=== PATIENT | female | born 1940 | race Caucasian/White ===

== ENCOUNTER 2023-07-31 12:52 | Emergency (ER) | payer MEDICARE ==
[~2023-07-31] VITALS: Ht 152.4 cm; Wt 59.9 kg
[2023-07-31] MEDS ORDERED: Primidone50 MG PO (13:21)
[2023-07-31] MEDS ORDERED: AMLO5 PO (13:21)
[2023-07-31 13:45] VITALS: BP 151/79
[2023-07-31 14:17] LABS: Albumin, Blood 3.3 g/dL (3.4-5.0); Bilirubin, Total 0.4 mg/dL (0.1-1.0); Bun/Creatinine Ratio 28.2 (12.0-20.0); Calcium, Blood 8.6 mg/dL (8.5-10.1); Creatinine, Blood 0.78 mg/dL (0.40-1.00); Globulin, Blood 3.4 g/dL (2.2-4.0); Potassium, Blood 4.2 mmol/L (3.5-5.5); Total Protein, Blood 6.7 g/dL (6.4-8.2)
[2023-07-31 14:51] LABS: BASOPHILS ABSOLUTE AUTO 0.05 K/mm3 (0.00-0.23); BASOPHILS PERCENT AUTO 1 % (0-2); EOSINOPHILS ABSOLUTE AUTO 0.04 K/mm3 (0.00-0.68); EOSINOPHILS PERCENT AUTO 1 % (0-6); Hematocrit 39.5 % (33.0-51.0); Hemoglobin 13.3 g/dL (11.5-16.0); IMMATURE GRAN ABSOLUTE AUTO 0.02 K/mm3 (0.00-0.10); IMMATURE GRAN PERCENT AUTO 0 % (0-1); LYMPHOCYTES ABSOLUTE AUTO 1.26 K/mm3 (0.84-5.20); LYMPHOCYTES PERCENT AUTO 17 % (21-46); MONOCYTES ABSOLUTE AUTO 0.83 K/mm3 (0.16-1.47); MONOCYTES PERCENT AUTO 11 % (4-13); Mean Corpuscular HGB 29.8 pg (26.0-34.0); Mean Corpuscular HGB Conc 33.7 g/dL (31.5-36.5); Mean Corpuscular Volume 89 fL (80-100); Mean Platelet Volume 11.2 fL (9.1-12.4); NEUTROPHILS ABSOLUTE AUTO 5.24 K/mm3 (1.96-9.15); NEUTROPHILS PERCENT AUTO 70 % (41-73); Platelet Count 191 K/mm3 (150-400); RDW Coefficient Variation 14.6 % (11.7-14.2); RDW Standard Deviation 47.4 fL (35.1-46.3); Red Blood Cell Count 4.46 M/mm3 (3.80-5.20); White Blood Cell Count 7.44 K/mm3 (4.00-11.30)
== END 2023-07-31 15:32 | disposition home or self-care (01) ==
LOC: ER 12:52
PROVIDERS: Emergency Medicine
DX: G45.9 Transient cerebral ischemic attack, unspecified (principal); Z79.899 Other long term (current) drug therapy
CPT/HCPCS: 36415; 70450; 80053; 85025; 93005; 93010; 99285-25; A9270

== ENCOUNTER 2024-07-30 14:22 | Inpatient (IN) | payer OTHER, MEDICARE ==
[~2024-07-30] VITALS: Ht 149.9 cm; Wt 57.8 kg
[~2024-07-30 14:22] MED LIST: AMLO5 PO; Primidone50 MG PO
[2024-07-30] MEDS ORDERED: CARBIDOPA-LEVO1 EA15 PO (15:03)
[2024-07-30] MEDS ORDERED: METOPROLOL SUCC25 MG PO (15:03)
[2024-07-30] MEDS ORDERED: Ketorolac Tromethamine 15mg Vial IV ONE (17:35)
[2024-07-30] MEDS ORDERED: Ondansetron HCl 2 MG / ML 2ML Vial IV ONE (17:35)
[2024-07-30 19:07] LABS: BASOPHILS ABSOLUTE AUTO 0.04 K/mm3 (0.00-0.23); BASOPHILS PERCENT AUTO 0 % (0-2); EOSINOPHILS ABSOLUTE AUTO 0.08 K/mm3 (0.00-0.68); EOSINOPHILS PERCENT AUTO 1 % (0-6); Hematocrit 40.5 % (33.0-51.0); Hemoglobin 13.3 g/dL (11.5-16.0); IMMATURE GRAN ABSOLUTE AUTO 0.04 K/mm3 (0.00-0.10); IMMATURE GRAN PERCENT AUTO 0 % (0-1); LYMPHOCYTES ABSOLUTE AUTO 1.62 K/mm3 (0.84-5.20); LYMPHOCYTES PERCENT AUTO 18 % (21-46); MONOCYTES ABSOLUTE AUTO 0.82 K/mm3 (0.16-1.47); MONOCYTES PERCENT AUTO 9 % (4-13); Mean Corpuscular HGB 29.4 pg (26.0-34.0); Mean Corpuscular HGB Conc 32.8 g/dL (31.5-36.5); Mean Corpuscular Volume 90 fL (80-100); Mean Platelet Volume 10.7 fL (9.1-12.4); NEUTROPHILS ABSOLUTE AUTO 6.42 K/mm3 (1.96-9.15); NEUTROPHILS PERCENT AUTO 71 % (41-73); Platelet Count 195 K/mm3 (150-400); RDW Coefficient Variation 14.4 % (11.7-14.2); RDW Standard Deviation 47.5 fL (35.1-46.3); Red Blood Cell Count 4.52 M/mm3 (3.80-5.20); White Blood Cell Count 9.02 K/mm3 (4.00-11.30)
[2024-07-30] MEDS ORDERED: Acetaminophen 325 MG TABLET PO PRN (19:10)
[2024-07-30] MEDS ORDERED: FLU VACC TS2024-25(6MOS UP)/PF 45 MCG/0.5 ML SYRINGE IM ONE (19:15)
[2024-07-30] MEDS ORDERED: Ondansetron HCl 2 MG / ML 2ML Vial IV PRN (19:15)
[2024-07-30 19:20] LABS: International Normalized Ratio 1.06; Prothrombin Time Results 11.3 Sec (9.7-11.5)
[2024-07-30] MEDS ORDERED: Ketorolac Tromethamine 15mg Vial IV PRN (19:30)
[2024-07-30 19:35] LABS: Albumin/Globulin Ratio 0.9 (0.8-1.8); Bilirubin, Total 0.4 mg/dL (0.1-1.0); Bun/Creatinine Ratio 21.6 (12.0-20.0); Calcium, Blood 8.2 mg/dL (8.5-10.1); Creatinine, Blood 1.02 mg/dL (0.40-1.00); Globulin, Blood 3.4 g/dL (2.2-4.0); Potassium, Blood 4.4 mmol/L (3.5-5.5); Total Protein, Blood 6.4 g/dL (6.4-8.2)
[2024-07-30] MEDS ORDERED: Levodopa/Carbidopa 100 / 25 MG Tab PO SCH (21:00)
[2024-07-30] MEDS ORDERED: Primidone 50 MG Tab PO SCH (21:00)
[2024-07-30 22:22] VITALS: BP 162/101
[2024-07-30] MEDS ORDERED: Morphine Sulfate 4 MG/1 ML Injection IV PRN (23:20)
[2024-07-30] MEDS ORDERED: OxyCODONE HCL 5 MG TAB PO PRN (23:20)
[2024-07-31] VITALS (15 sets, daily range): BP systolic 125–159; BP diastolic 57–77
[2024-07-31 05:39] LABS: BASOPHILS ABSOLUTE AUTO 0.05 K/mm3 (0.00-0.23); BASOPHILS PERCENT AUTO 1 % (0-2); EOSINOPHILS ABSOLUTE AUTO 0.13 K/mm3 (0.00-0.68); EOSINOPHILS PERCENT AUTO 2 % (0-6); Hematocrit 39.2 % (33.0-51.0); Hemoglobin 13.1 g/dL (11.5-16.0); IMMATURE GRAN ABSOLUTE AUTO 0.02 K/mm3 (0.00-0.10); IMMATURE GRAN PERCENT AUTO 0 % (0-1); LYMPHOCYTES ABSOLUTE AUTO 1.48 K/mm3 (0.84-5.20); LYMPHOCYTES PERCENT AUTO 21 % (21-46); MONOCYTES ABSOLUTE AUTO 0.85 K/mm3 (0.16-1.47); MONOCYTES PERCENT AUTO 12 % (4-13); Mean Corpuscular HGB 29.6 pg (26.0-34.0); Mean Corpuscular HGB Conc 33.4 g/dL (31.5-36.5); Mean Corpuscular Volume 89 fL (80-100); Mean Platelet Volume 11.1 fL (9.1-12.4); NEUTROPHILS ABSOLUTE AUTO 4.47 K/mm3 (1.96-9.15); NEUTROPHILS PERCENT AUTO 64 % (41-73); Platelet Count 196 K/mm3 (150-400); RDW Coefficient Variation 14.5 % (11.7-14.2); RDW Standard Deviation 47.2 fL (35.1-46.3); Red Blood Cell Count 4.43 M/mm3 (3.80-5.20)
--- NOTE | 2024-07-31 06:10 | NUR ---
PT TRANSFERED TO SURGICAL FLOOR AT 0605 WITH ALL BELONGINGS. VSS. NO ACUTE DISTRESS. A/O X 4, ADEQUATE CIRCULATION TO RLE.
--- NOTE | 2024-07-31 06:30 | NUR ---
TRANSFER NOTE PT TRANSFERED TO SURGICAL FLOOR FROM [facility]. PT TRANSFERED IN BED, PURWICK CHANGED, PT HAD INC VOID IN PURWICK UPON ARRIVAL. CHANGED CONDE PAD UNDERNEATH PT AND REPOSITIONED R SIDE, BOTH LEGS ELEVATED. PT ABLE TO WIGGLE R TOES, CAP REFILL 2 SECS, PEDAL PULSES PALPABLE. SCDS IN PLACE. VSS. PT IS A/O X4. 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 PT DENIES PAIN WHILE AT REST.
[2024-07-31 07:02] LABS: Albumin, Blood 3.1 g/dL (3.4-5.0); Albumin/Globulin Ratio 0.9 (0.8-1.8); Bilirubin, Total 0.6 mg/dL (0.1-1.0); Bun/Creatinine Ratio 21.8 (12.0-20.0); Calcium, Blood 8.7 mg/dL (8.5-10.1); Creatinine, Blood 1.01 mg/dL (0.40-1.00); Globulin, Blood 3.5 g/dL (2.2-4.0); Magnesium, Blood 2.2 mg/dL (1.6-2.4); Potassium, Blood 4.5 mmol/L (3.5-5.5); Total Protein, Blood 6.6 g/dL (6.4-8.2)
[2024-07-31] MEDS ORDERED: AmLODIPine Besylate 5 MG Tab PO SCH (09:00)
[2024-07-31] MEDS ORDERED: Metoprolol Succinate 25 MG TABCR PO SCH (09:00)
--- NOTE | 2024-07-31 09:22 | NUR ---
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 CALLED DR. MCKEON TO VERIFY THEY RECIEVED CONSULT. NOW AWARE PT HAS BEEN NPO SINCE MIDNIGHT.
--- NOTE | 2024-07-31 09:53 | NUR ---
PT NPO SINCE MIDNIGHT, CREAT 1.01. DR. GRESHAM NOTIFIED, PER MD LAKE TO ORDER NS AT 100 ML/HR
[2024-07-31] MEDS ORDERED: NS 1,000 ML IV SCH (09:55)
[2024-07-31] MEDS ORDERED: Tranexamic Acid 100 ML IV SCH (10:50)
[2024-07-31] MEDS ORDERED: CeFAZolin Sodium 2,000 MG in NS 100 ML IV SCH (10:50)
[2024-07-31] MEDS ORDERED: Lactated Ringer's 1,000 ML IV SCH (12:50)
[2024-07-31] MEDS ORDERED: propofoL 20 ML IV ONE (13:22)
--- NOTE | 2024-07-31 13:53 | NUR ---
Patient transfered to Day Surgery via bed accompanied by son and . History, Chart, Medications and Allergies reviewed before start of procedure. Patient confirms NPO status and agrees with scheduled surgery.
[2024-07-31] MEDS ORDERED: EpiNEPhrine 1 MG/1 ML 1ML Vial ONE (14:02)
[2024-07-31] MEDS ORDERED: Bupivacaine 0.5% HCl 5 MG/ML 30MLVIAL ONE (14:03)
[2024-07-31] MEDS ORDERED: propofoL 50 ML IV ONE (14:24)
[2024-07-31] MEDS ORDERED: Phenylephrine HCl 100 MCG/ML-NS 10MLSYR (1MG/10ML) ONE (15:18)
--- NOTE | 2024-07-31 17:03 | NUR ---
PT BACK IN ROOM FROM PROCEDURE. ALERT AND ORIENTED X4. DENIES PAIN IN RLE, REPORTS NAUSEA AND HEADACHE. TREATED NAUSEA FIRST AND THEN HEADACHE ONCE NAUSEA SUBSIDE. PT STATES HEADACHE IS COMING FROM NECK PAIN.
--- NOTE | 2024-07-31 17:24 | NUR ---
POST OP ASSESSMENT- PUPILS EQUAL ROUND AND ACCOMMODATION OBSERVED. , PT REPORTS FEELING PRESSURE WHEN PRESSURE APPLIED TO BLE AND BILATERAL HIPS. DENIES PAIN AT THIS TIME, PT EDUCATED ON IMPORTANCE OF ADEQUETE PAIN CONTROL. PT VERBALIZES UNDERSTAND TO CALL FOR PAIN LEVEL 3-5 AND NOT WAIT UNTIL PAIN UNBEARABLE. 3 SURGICAL SITES OBSERVED. DRESSINGS C/D/I. VSS STABLE. DRINKING WATER, SITTING UP IN BED. PT REPORTS NAUSEA MEDICATION EFFECTIVE. SPOUSE AT BEDSIDE. PURWICK IN PLACE
--- NOTE | 2024-07-31 18:01 | NUR ---
SHIFT SUMMARY PT IS DROWSY, STATES THAT SHE WOULD LIKE TO SLEEP. AROUSES TO VERBAL STIMULI. PT REPORTS HEADACHE IS STARTING TO GET BETTER. NAUSEA MEDICATION EFFECTIVE. SPINAL EPIDURAL, PT DENIES PAIN IN BLE AND HIPS. DRINKING WATER, DECLINED DINNER. REPOSITIONED, SUPPORTED HIPS WITH PILLOWS.
[2024-08-01 03:53] VITALS: BP 143/72
[2024-08-01 05:22] LABS: BASOPHILS ABSOLUTE AUTO 0.03 K/mm3 (0.00-0.23); BASOPHILS PERCENT AUTO 0 % (0-2); EOSINOPHILS ABSOLUTE AUTO 0.02 K/mm3 (0.00-0.68); EOSINOPHILS PERCENT AUTO 0 % (0-6); Hemoglobin 12.2 g/dL (11.5-16.0); IMMATURE GRAN ABSOLUTE AUTO 0.03 K/mm3 (0.00-0.10); IMMATURE GRAN PERCENT AUTO 0 % (0-1); LYMPHOCYTES ABSOLUTE AUTO 1.13 K/mm3 (0.84-5.20); LYMPHOCYTES PERCENT AUTO 13 % (21-46); MONOCYTES ABSOLUTE AUTO 0.99 K/mm3 (0.16-1.47); MONOCYTES PERCENT AUTO 12 % (4-13); Mean Corpuscular HGB 29.1 pg (26.0-34.0); Mean Corpuscular HGB Conc 32.1 g/dL (31.5-36.5); Mean Corpuscular Volume 91 fL (80-100); Mean Platelet Volume 11.4 fL (9.1-12.4); NEUTROPHILS ABSOLUTE AUTO 6.31 K/mm3 (1.96-9.15); NEUTROPHILS PERCENT AUTO 74 % (41-73); Platelet Count 167 K/mm3 (150-400); RDW Coefficient Variation 14.5 % (11.7-14.2); RDW Standard Deviation 48.2 fL (35.1-46.3); Red Blood Cell Count 4.19 M/mm3 (3.80-5.20); White Blood Cell Count 8.51 K/mm3 (4.00-11.30)
[2024-08-01 05:53] LABS: Bun/Creatinine Ratio 17.6 (12.0-20.0); Calcium, Blood 7.8 mg/dL (8.5-10.1); Creatinine, Blood 0.74 mg/dL (0.40-1.00); Potassium, Blood 4.2 mmol/L (3.5-5.5)
--- NOTE | 2024-08-01 06:27 | NUR ---
SHIFT SUMMARY PT POD 0 RIGHT HIP REPAIR. PT HAS RESTED MOST OF THE NIGHT, APPEARED SLEEPING DURING NURSE ROUNDS AND DENIED NEEDS WHEN ASKED. PT DENIES PAIN. SURGICAL SITE WNL. DRESSING C/D/I. APPETITE IS LOW BUT PT TAKING IN SMALL SIPS OF WATER. NO N/V. IVF INFUSED OVERNIGHT. PT VOIDING WITH PUREWICK IN PLACE. PLAN OF CARE REMAINS UNCHANGED. BED IN LOWEST POSITION, CALL LIGHT WITHIN REACH.
[2024-08-01 07:37] VITALS: BP 157/73
[2024-08-01] MEDS ORDERED: TraMADol HCl 50 MG Tab PO PRN (10:10)
[2024-08-01 14:29] VITALS: BP 135/59
--- NOTE | 2024-08-01 18:12 | NUR ---
SHIFT SUMMARY PT'S SPOUSE AT BEDSIDE MOST OF DAY. PT A&O X4. PT UP TO CHAIR SINCE LUNCH. PT TO BSC. CALL LIGHT WITHIN REACH. PT DENIES OTHER NEEDS AT THIS TIME.
[2024-08-01 19:46] VITALS: BP 158/65
--- NOTE | 2024-08-01 20:19 | NUR ---
SHIFT SUMMARY PT IS POD#1 FROM R HIP PINNING. PAIN MANAGED WITH TYLENOL. PT HAS BEEN A 2 ASSIST FOR TRANSFERS THIS SHIFT, PT IS WEAK AND HER LEGS OCCASIONALLY BUCKLY WHEN STANDING. GAIT BELT AND WALKER USED FOR SAFETY. PT USES CALL LIGHT APPROPRIATELY. CALL LIGHT WITHIN REACH, SHE USES IT APPROPRIATELY. BEDSIDE REPORT GIVEN TO LAVELL MENA.
[2024-08-02 04:22] VITALS: BP 166/74
[2024-08-02 04:30] LABS: BASOPHILS ABSOLUTE AUTO 0.02 K/mm3 (0.00-0.23); BASOPHILS PERCENT AUTO 0 % (0-2); EOSINOPHILS ABSOLUTE AUTO 0.03 K/mm3 (0.00-0.68); EOSINOPHILS PERCENT AUTO 0 % (0-6); Hematocrit 36.8 % (33.0-51.0); Hemoglobin 12.3 g/dL (11.5-16.0); IMMATURE GRAN ABSOLUTE AUTO 0.04 K/mm3 (0.00-0.10); IMMATURE GRAN PERCENT AUTO 1 % (0-1); LYMPHOCYTES ABSOLUTE AUTO 1.26 K/mm3 (0.84-5.20); LYMPHOCYTES PERCENT AUTO 16 % (21-46); MONOCYTES ABSOLUTE AUTO 0.95 K/mm3 (0.16-1.47); MONOCYTES PERCENT AUTO 12 % (4-13); Mean Corpuscular HGB 29.1 pg (26.0-34.0); Mean Corpuscular HGB Conc 33.4 g/dL (31.5-36.5); Mean Corpuscular Volume 87 fL (80-100); Mean Platelet Volume 10.7 fL (9.1-12.4); NEUTROPHILS ABSOLUTE AUTO 5.42 K/mm3 (1.96-9.15); NEUTROPHILS PERCENT AUTO 70 % (41-73); Platelet Count 180 K/mm3 (150-400); RDW Coefficient Variation 14.1 % (11.7-14.2); RDW Standard Deviation 45.1 fL (35.1-46.3); Red Blood Cell Count 4.23 M/mm3 (3.80-5.20); White Blood Cell Count 7.72 K/mm3 (4.00-11.30)
[2024-08-02 04:49] LABS: Bun/Creatinine Ratio 14.8 (12.0-20.0); Calcium, Blood 8.2 mg/dL (8.5-10.1); Creatinine, Blood 0.74 mg/dL (0.40-1.00)
--- NOTE | 2024-08-02 04:54 | NUR ---
SHIFT SUMMARY PT POD 1 RIGHT HIP PINNING. PT HAS RESTED T/O THE NIGHT APPEARED SLEEPING DURING NURSE ROUNDS. PT REPORTS MINIMAL PAIN AND DECLINED PAIN MEDICATIONS. SURGICAL SITE WNL. DRESSING C/D/I. PUREWICK IN PLACE T/O THE NIGHT WITH ADEQUATE OUTPUT. PLAN OF CARE REMAINS UNCHANGED. BED IN LOWEST POSITION, CALL LIGHT WITHIN REACH.
[2024-08-02 07:29] VITALS: BP 143/69
[2024-08-02 09:45] LABS: SARS-Cov-2 (COVID-19) PCR, MMC NEGATIVE (NEGATIVE)
[2024-08-02 11:03] VITALS: BP 131/64
--- NOTE | 2024-08-02 11:15 | NUR ---
DISCHARGE REPORT CALLED TO RIN AT [facility] PRIOR TO LEAVING WITH TRANSPORT. RIN NOTIFIED THAT PT HAS NOT HAD A BOWEL MOVEMENT SINCE ADMIT, HE STATED OK TO SENT PT. VSS PRIOR TO DISCHARGE. PT'S NOTIFIED THAT PT WAS DISCHARGING AT 1100. DISCHARGE PACKET AND DRESSINGS SENT WITH PT UPON DISCHARGE. PT LEFT WITH W/C TRANSPORT AT APPROXIMATELY 1115.
== END 2024-08-02 11:15 | DRG 482 ==
LOC: ER 14:22 → SURS 14:23 → ERHOLD 14:23 → MEDS 14:23 → SURS 07-31 06:00
PROVIDERS: Family Medicine; Orthopaedic Surgery; Student in an Organized Health Care Education/Training Program; ADMIT Student in an Organized Health Care Education/Training Program
PROC: 0QS636Z Reposition Right Upper Femur with Intramedullary Internal Fixation Device, Percutaneous Approach (ICD-10-PCS; principal; 2024-07-31 13:00)
DX: S72.141A Displaced intertrochanteric fracture of right femur, initial encounter for closed fracture (principal); I10 Essential (primary) hypertension; W01.0XXA Fall on same level from slipping, tripping and stumbling without subsequent striking against object, initial encounter; R25.1 Tremor, unspecified; E16.2 Hypoglycemia, unspecified; Z86.73 Personal history of transient ischemic attack (TIA), and cerebral infarction without residual deficits
CPT/HCPCS: 36415; 73502; 80048; 80053; 82947; 83735; 85025; 85610; 85730; 93005; 93010; 96374; 96375; 97110; 97116; 97162; 97165; 97530; 97535; 99284-25; A9270; C1713; G0378; J0171; J0690; J1885; J2270; J2371; J2405; J2704; J7030; J7120; U0002